=== PATIENT | female | born 1990 | race Caucasian/White ===

== ENCOUNTER 2020-10-02 22:42 | Emergency (ER) | payer BC, SELFPAY ==
--- NOTE | ~2020-10-02 | CT_ITS ---
EXAMINATION: CT brain wo con DATE: 10/02/2020 23:35 INDICATION: Fall. Head injury. TECHNIQUE: Computed tomography (CT) of the head was performed without intravenous contrast. The mA wa s adjusted according to patient size. Iterative reconstruction technique was employed. Exam dose: 60 5.33 mGy-cm total exam DLP. COMPARISON: 05/09/2013 CT brain FINDINGS: No intracranial mass lesion or hemorrhage or cerebrovascular accident is detected. No midli ne shift or mass effect effect. Normal ventricular size. Normal bassett-white matter differentiation. No subdural or epidural hematoma. Included paranasal sinuses and mastoid air cells are unremarkable. No fracture or bone destruction of the cranial vault. IMPRESSION: No significant abnormality Reviewed, dictated and finalized at [facility]. Reviewed, dictated and finalized at location [facility]. INIST BENCH IMPRESSION: No significant abnormality
--- NOTE | ~2020-10-02 | XR_ITS ---
XR chest 1V portable DATE: 10/02/2020 23:24 INDICATION: Patient fell and struck head. TECHNIQUE: Portable AP chest on 10/02/2020 at 2320 hours COMPARISON: 01/06/2016 2 view chest FINDINGS: Normal heart size. No hilar or mediastinal enlargement. No pulmonary infiltrate or consolid ation, pleural effusion or pulmonary vascular congestion or pneumothorax. IMPRESSION: No active cardiopulmonary disease Reviewed, dictated and finalized at location [facility]. MIXER
--- NOTE | ~2020-10-02 | CT_ITS ---
EXAMINATION: CT facial & cervical spine wo DATE: 10/02/2020 23:36 INDICATION: Fall. Facial and neck injury TECHNIQUE: Computed tomography (CT) of the facial bones and maxillofacial region and cervical spine w as performed without intravenous contrast. Automated exposure control and iterative reconstruction te chnique were employed. Exam dose: 282.13 mGy-cm total exam DLP. COMPARISON: 05/09/2013 CT facial bone FINDINGS: The frontozygomatic sutures are intact. No nasal bone fracture. Anterior maxillary spine is intact. The orbital rims and floors and the remainder of the orbital cha are preserved. No orbital mass or hematoma. The zygomatic arches are intact. No facial fracture is detected. Other than minimal mucoperiosteal thickening of the lower right maxillary sinus. The paranasal sinuse s and mastoid air cells are normally developed and aerated. The cervical vertebrae are normally aligned. There is straightening of the cervical spine which may b e secondary to muscle spasm. No fracture or dislocation or locked facet or prevertebral soft tissue swelling. Cervical interspaces are preserved. IMPRESSION: No facial or cervical fracture Straightening of the cervical spine, which may be secondary to muscle spasm Reviewed, dictated and finalized at [facility]. Reviewed, dictated and finalized at location [facility]. ABLE IRRIGATION OPERATOR
[2020-10-02 22:45] VITALS: BP 141/100; PULSE 126; RESP 16; TEMP 37; O2SAT 100
--- NOTE | 2020-10-02 23:22 | ED.GENADULT ---
HPI - General Adult General Chief complaint: Fall Stated complaint: ETOH, fall with head injury Time Seen by Provider: 10/02/20 22:49 Source: patient and family Mode of arrival: ambulatory Limitations: no limitations History of Present Illness HPI narrative: Patient is a 29-year-old female who presents with mother for evaluation of head injury that occurred today patient with history of alcohol abuse presents after reportedly falling and striking the head patient presents with bruising around the right orbit and temporal region patient denies any pain on arrival is unsure as to whether or not she sustained loss of consciousness patient otherwise is in no distress upon arrival is alert and oriented x3 with a GCS of 15 upon arrival patient denies suicidal or homicidal ideation patient is followed by primary care. Patient's only home medication of Xanax Related Data Allergies Allergy/AdvReac Type Severity Reaction Status Date / Time Penicillins Allergy Unknown Verified 03/24/10 10:55 Review of Systems Review of Systems: All systems reviewed & are unremarkable except as noted in HPI and below PMFSH Past Medical History Medical History (Updated 10/03/20 @ 01:25 by Ildefonso White PA-C) Anxiety Depression Family History Family History (Updated 05/03/14 @ 07:13 by DOCTOR UNKNOWN) Mother Hypertension Social History Social History (Updated 10/02/20 @ 23:24 by Ildefonso White PA-C) Smoking status: Never smoker Alcohol intake: current Exam Narrative: Exam Narrative: GENERAL: Well-appearing, well-nourished, and in no acute distress. HEAD: Normocephalic, bruising around the right orbit and temporal region EYES: PERRLA and EOMI. ENT: Nares clear, no rhinorrhea or epistaxis. Mucous membranes moist. NECK: Supple. No adenopathy or masses. CHEST: Clear to auscultation. No respiratory distress. No wheezes rales or rhonchi HEART: Regular rate and rhythm. No murmur heard. Normal peripheral pulses. ABDOMEN: Soft, nontender, nondistended EXTREMITIES: Normal range of motion. No edema. No cervical thoracic or lumbar tenderness SKIN: Warm, dry, no rash. NEURO: No focal deficits. Alert and oriented x3. Cranial nerves II through XII grossly intact. GCS of 15 PSYCH: Normal mood and affect. Course Course Emergency Course: Patient evaluated in the emergency department resting comfortably hemodynamically stable afebrile nontoxic-appearing will be discharged home at this time with outpatient follow-up with primary care patient provided with reasons to return will be discharged with family who patient and family feel comfortable with this plan Vital Signs Vital signs: Vital Signs Temperature 98.6 F 10/02/20 22:45 Pulse Rate 126 H 10/02/20 22:45 Respiratory Rate 16 10/02/20 22:45 Blood Pressure 141/100 H 10/02/20 22:45 Pulse Oximetry 100 10/02/20 22:45 Temperature 98.6 F 10/02/20 22:45 Pulse Rate 126 H 10/02/20 22:45 Respiratory Rate 16 10/02/20 22:45 Blood Pressure 141/100 H 10/02/20 22:45 Pulse Oximetry 100 10/02/20 22:45 Medical Decision Making MDM Narrative Medical decision making narrative: No high risk changes in the blood work or imaging patient was hydrated given antibiotics for her urinary tract infection will be discharged with outpatient follow-up hemodynamically stable vital signs and ABCs intact and stable Vital Signs Vital Signs: Vital Signs Temperature 98.6 F 10/02/20 22:45 Pulse Rate 126 H 10/02/20 22:45 Respiratory Rate 16 10/02/20 22:45 Blood Pressure 141/100 H 10/02/20 22:45 Pulse Oximetry 100 10/02/20 22:45 Temperature 98.6 F 10/02/20 22:45 Pulse Rate 126 H 10/02/20 22:45 Respiratory Rate 16 10/02/20 22:45 Blood Pressure 141/100 H 10/02/20 22:45 Pulse Oximetry 100 10/02/20 22:45 Lab Data Result diagrams: 10/02/20 23:20 10/02/20 23:20 Labs: Lab Results 10/02/20 10/02/20 10/02/20 Range/Unit
--- NOTE | 2020-10-02 23:24 | PC.NURSE ---
Patient to radiology
[2020-10-02 23:27] LABS: Basophils Absolute Auto 0.1 K/mm3 (0.0-0.1); Eosinophils Absolute Auto 0.1 K/mm3 (0-0.3); Eosinophils Percent Auto 0.8 % (0-4.4); Hematocrit 46.1 % (37.0-47.0); Hemoglobin 15.6 g/dL (12.0-15.0); Immature Granulocyte Absolute 0.01 K/mm3 (0.00-0.031); Immature Granulocyte Percent A 0.2 % (0-0.5); Lymphocytes Absolute Auto 2.55 K/mm3 (0.9-3.2); Lymphocytes Percent Auto 38.5 % (18.3-44.2); Mean Corpuscular HGB Conc 33.8 g/dl (32-36); Mean Corpuscular Hemoglobin 30.8 pg (26-34); Mean Corpuscular Volume 90.9 fl (80-100); Mean Platelet Volume 9.5 fl (7.4-10.4); Monocytes Absolute Auto 0.5 K/mm3 (0.1-0.6); Monocytes Percent Auto 6.8 % (2.6-8.5); Neutrophils Absolute Auto 3.4 K/mm3 (1.3-6.7); Neutrophils Percent Auto 51.7 % (45.5-73.1); Platelet Count Result 279 k/mm3 (150-375); Red Blood Count 5.07 M/mm3 (4.2-5.4); Red Cell Distribution Width 12.9 % (11.5-14.5); White Blood Count 6.6 K/mm3 (4.5-10.0)
[2020-10-02 23:38] LABS: Magnesium 2.2 mg/dL (1.6-2.3)
[2020-10-02 23:39] LABS: Alanine Aminotransferase 56 U/L (4-35); Albumin Level 4.7 g/dL (3.5-5.1); Alkaline Phosphatase 79 U/L (38-126); Anion Gap 15 mmol/L (8-16); Aspartate Amino Transferase 115 U/L (14-36); Bilirubin,Total 0.6 mg/dL (0.2-1.3); Blood Urea Nitrogen 5 mg/dL (7-17); Calcium 8.8 mg/dL (8.4-10.2); Carbon Dioxide 26 mmol/L (22-30); Chloride 104 mmol/L (98-107); Estimated CRCL calculation 85 ml/min; Estimated Glomerular Filt Rate > 60; Glucose 82 mg/dL (65-105); Lipase 86 U/L (23-300); Potassium 3.9 mmol/L (3.4-5.0); Sodium 145 mmol/L (137-145)
[2020-10-02] MEDS: FAMOTIDINE 20 MG/2 ML VIAL IV PUSH (23:54)
[2020-10-02] MEDS: THIAMINE HCL INJ 100 MG, FOLIC ACID INJ 1 MG, MULTIVITAMINS-12 INJ VIAL 1 5 ML, MULTIVI... 999 MG IV CONT (23:54)
[2020-10-02] MEDS: ONDANSETRON INJ 4 MG/2 ML VIAL IV PUSH (23:54)
[2020-10-03 00:34] LABS: Add Urine Microscopic? YES; Appearance Urine Cloudy (Clear); Bilirubin Urine Negative (Negative); Blood Urine 3+ (Negative); Color Urine Red (Yellow); Glucose Urine UA Negative (Negative); Ketones Urine 1+ mg/dL (Negative); Leukocyte Esterase Ur Trace LEU/UL (Negative); Mucus Urine Rare /lpf; Nitrate Urine Negative (Negative); Protein Urine 2+ mg/dL (Negative); RBC Urine >75 /hpf (0-2); Specific Grav Ur 1.016 (1.001-1.035); Squamous Epithelial Cell Urine Moderate /hpf (Few); Urobilinogen Urine Negative mg/dL (<2.0); WBC Urine 51-75 /hpf
[2020-10-03 01:40] VITALS: BP 143/94; PULSE 100; RESP 16; TEMP 36.6; O2SAT 96
== END 2020-10-03 01:42 | disposition home or self-care (01) ==
PROVIDERS: Emergency Medicine Emergency Medical Services; Emergency Provider Emergency Medicine; Family Provider Internal Medicine; PCP Family Medicine
DX: S05.11XA Contusion of eyeball and orbital tissues, right eye, initial encounter (principal); N39.0 Urinary tract infection, site not specified; W19.XXXA Unspecified fall, initial encounter
CPT/HCPCS: 36415; 70450; 70486; 71045; 72125; 80053; 81001; 81025; 83690; 83735; 85025; 87077; 87086; 87088; 87186; 96365; 96375; 99284; J0696; J2405; J3411; J3475; J7120

== ENCOUNTER 2024-02-03 15:08 | Emergency (ER) | payer MEDICAID, SELFPAY ==
[2024-02-03 15:13] VITALS: BP 156/100; PULSE 100; RESP 16; TEMP 37; O2SAT 100
--- NOTE | 2024-02-03 15:14 | ED.RECABL ---
HPI - Recheck/Abnormal Lab/Rx General Chief Complaint: Recheck/Abnormal Lab/Rx Stated Complaint: Medication refill Time Seen by Provider: 02/03/24 15:12 Source: patient Mode of arrival: ambulatory Limitations: no limitations History of Present Illness HPI narrative: Patient presents requesting medication refill. She had been taking alprazolam/Xanax for anxiety for the past 7 years. Recently moved back to this area from [place] but her prescription for this medication has not been able to be filled. She is also on fluoxetine. Has not been able to get in to see a PCP or psychiatrist yet. She knows she has an appointment coming up on 02/16. She has been out of her anxiolytic for 2.5 weeks and states that her anxiety is severe enough today that she had to quit her job which is in turn causing even more stress and anxiety. Denies any SI/HI. Related Data Allergies Allergy/AdvReac Type Severity Reaction Status Date / Time Penicillins Allergy Unknown Verified 03/24/10 10:55 [facility] Past Medical History Medical History Anxiety Depression Family History Family History (Updated 05/03/14 @ 07:13 by DOCTOR UNKNOWN) Mother Hypertension Social History Social History (Updated 10/02/20 @ 23:24 by Ildefonso White, PA-C) Smoking status: Never smoker Alcohol intake: current Substance use type: does not use Exam Narrative: GENERAL: Well-appearing, well-nourished, and in no acute distress. HEAD: Normocephalic, atraumatic. EYES: Non injected, non icteric ENT: Nares clear, no rhinorrhea or epistaxis. NECK: Supple. CHEST: Speaking in full sentences. No respiratory distress. HEART: Regular rate and rhythm. . ABDOMEN: Soft, nondistended. EXTREMITIES: Normal range of motion. No edema. SKIN: Warm, dry, no rash. NEURO: No focal deficits. Alert and oriented x3. PSYCH: Normal mood and affect. Slightly anxious but not tremulous. No abnormal movements. GOod eye contact. Appropriate speech. Denies SI/HI. Course Vital Signs Vital signs: Vital Signs Temperature 98.6 F 02/03/24 15:13 Pulse Rate 100 02/03/24 15:13 Respiratory Rate 16 02/03/24 15:13 Blood Pressure 156/100 H 02/03/24 15:13 Pulse Oximetry 100 02/03/24 15:13 Oxygen Delivery Room Air 02/03/24 15:13 Temperature 98.6 F 02/03/24 15:13 Pulse Rate 84 02/03/24 16:29 Respiratory Rate 16 02/03/24 16:29 Blood Pressure 141/84 H 02/03/24 16:29 Pulse Oximetry 99 02/03/24 16:29 Oxygen Delivery Room Air 02/03/24 15:13 MDM - Recheck/Abnormal Lab/Rx MDM Narrative Medical decision making narrative: Patient presents requesting refill of her Xanax, a medication she has been on for 7 years (in conjunction with fluoxetine) but out of for the past 2.5 weeks since moving back to this area from [place]. In the ED she is afebrile with VS notable for HTN. Patient screened with CHERRY-7: 21 points (+3/nearly every day each question) airport representative of severe anxiety disorder with global impairment rated extremely difficult, especially ability to work as she felt she needed to quit her job today due to how extreme her symptoms felt. Denies SI/HI. Patient has pill bottle from [place] showing last Rx 12/07/23, prescribed as 0.5 - 1 pill daily. Patient states she takes 1 per day typically. Has an upcoming appointment to establish with a provider in this area. Will write for short course of anxiolytic. Attempted to check [place] database and it does not appear there have been other recent fills in the state. Discharged in stable condition after giving her a home dose and giving ED return precautions. Medical Records Attestation: I reviewed the patient's medical records. Medical records narrative: Patient not seen at [facility] since 2020 Discharge Plan Discharge Clinical Impression: Encounter for medication refill, CHERRY (generalized anxiety disorder) Patient Disposition: Home,
[2024-02-03] MEDS: ALPRAZolam (*CRX) 0.5 MG TABLET 1 MG PO (16:18)
[2024-02-03 16:29] VITALS: BP 141/84; PULSE 84; RESP 16; O2SAT 99
== END 2024-02-03 16:30 | disposition home or self-care (01) ==
PROVIDERS: Emergency Provider Student in an Organized Health Care Education/Training Program
DX: F41.1 Generalized anxiety disorder (principal); F32.A Depression, unspecified; Z76.0 Encounter for issue of repeat prescription
CPT/HCPCS: 99281; A9270

== ENCOUNTER 2024-02-17 10:58 | Outpatient (CLI) | payer MEDICAID, SELFPAY ==
[2024-02-29 15:40] LABS: Kit Draw Collected
== END 2024-02-17 10:59 | disposition home or self-care (01) ==
DX: Z76.89 Persons encountering health services in other specified circumstances (principal)
CPT/HCPCS: 36415

== ENCOUNTER 2024-03-16 15:51 | Outpatient (CLI) | payer MEDICAID, SELFPAY ==
[2024-03-16 20:12] LABS: Basophils Percent Auto 0.5 % (0.2-1.2); Eosinophils Absolute Auto 0.1 K/mm3 (0-0.3); Eosinophils Percent Auto 1.1 % (0-4.4); Hematocrit 37.6 % (37.0-47.0); Hemoglobin 12.3 g/dL (12.0-15.0); Immature Granulocyte Absolute 0.03 K/mm3 (0.00-0.031); Immature Granulocyte Percent A 0.3 % (0-0.5); Lymphocytes Absolute Auto 1.61 K/mm3 (0.9-3.2); Lymphocytes Percent Auto 18.3 % (18.3-44.2); Mean Corpuscular HGB Conc 32.7 g/dl (32-36); Mean Corpuscular Hemoglobin 29.9 pg (26-34); Mean Corpuscular Volume 91.5 fl (80-100); Monocytes Absolute Auto 0.8 K/mm3 (0.1-0.6); Monocytes Percent Auto 8.5 % (2.6-8.5); Neutrophils Absolute Auto 6.3 K/mm3 (1.3-6.7); Neutrophils Percent Auto 71.3 % (45.5-73.1); Platelet Count Result 193 k/mm3 (150-375); Red Blood Count 4.11 M/mm3 (4.2-5.4); Red Cell Distribution Width 12.6 % (11.5-14.5); White Blood Count 8.8 K/mm3 (4.5-10.0)
[2024-03-16 20:24] LABS: HIV 1/2 Ab P24 Ag Result Negative (Negative)
[2024-03-16 20:32] LABS: Hepatitis B Surface Antigen Negative (Negative); Rubella IgG Antibody 9.1 IU/ML
[2024-03-17 11:18] LABS: Rapid Plasma Reagin Non-Reactive (NonReactive)
[2024-03-17 12:49] LABS: CMV IgG Antibody <0.60 U/mL
[2024-03-26 19:33] LABS: SMA 2.0 RISK VARIANT NOT DETECTED
[2024-03-29 09:08] LABS: CF Result NEGATIVE (NEGATIVE)
== END 2024-03-16 15:52 | disposition home or self-care (01) ==
LOC: ANHGOSHLAB 15:52
PROVIDERS: Visit Provider Student in an Organized Health Care Education/Training Program
DX: N94.89 Other specified conditions associated with female genital organs and menstrual cycle (principal)
CPT/HCPCS: 36415; 81220; 81329; 84702; 85025; 86592; 86644; 86703; 86747; 86762; 86787; 86850; 86900; 86901; 87086; 87340; G0432

== ENCOUNTER 2024-06-23 14:16 | Outpatient (CLI) | payer OTHER, SELFPAY ==
[2024-06-23 18:02] LABS: Basophils Absolute Auto 0.1 K/mm3 (0.0-0.1); Basophils Percent Auto 0.6 % (0.2-1.2); Eosinophils Absolute Auto 0.1 K/mm3 (0-0.3); Hematocrit 36.1 % (37.0-47.0); Hemoglobin 11.5 g/dL (12.0-15.0); Immature Granulocyte Absolute 0.11 K/mm3 (0.00-0.031); Immature Granulocyte Percent A 1.1 % (0-0.5); Lymphocytes Absolute Auto 1.62 K/mm3 (0.9-3.2); Lymphocytes Percent Auto 16.8 % (18.3-44.2); Mean Corpuscular HGB Conc 31.9 g/dl (32-36); Mean Corpuscular Hemoglobin 29.5 pg (26-34); Mean Corpuscular Volume 92.6 fl (80-100); Mean Platelet Volume 12.3 fl (7.4-10.4); Monocytes Absolute Auto 0.6 K/mm3 (0.1-0.6); Monocytes Percent Auto 6.6 % (2.6-8.5); Neutrophils Absolute Auto 7.1 K/mm3 (1.3-6.7); Neutrophils Percent Auto 73.9 % (45.5-73.1); Platelet Count Result 134 k/mm3 (150-375); Red Cell Distribution Width 13.1 % (11.5-14.5); White Blood Count 9.7 K/mm3 (4.5-10.0)
[2024-06-23 18:12] LABS: Glucose 1 Hour PP 50gm Dose 140 mg/dL
[2024-06-23 19:04] LABS: HIV 1/2 Ab P24 Ag Result Negative (Negative)
[2024-06-24 13:45] LABS: Rapid Plasma Reagin Non-Reactive (NonReactive)
== END 2024-06-23 14:17 | disposition home or self-care (01) ==
LOC: ANHGOSHLAB 14:18
PROVIDERS: Visit Provider Obstetrics & Gynecology
DX: Z34.90 Encounter for supervision of normal pregnancy, unspecified, unspecified trimester (principal)
CPT/HCPCS: 36415; 82947; 85025; 86592; 86703; G0432

== ENCOUNTER 2024-06-27 12:38 | Outpatient (CLI) | payer OTHER, SELFPAY ==
[2024-06-27 12:50] LABS: Glucose Point of Care 91 mg/dl (65-105)
[2024-06-27 19:03] LABS: Glucose 2 Hour Gest 114 mg/dL (>/= 155)
[2024-06-27 19:04] LABS: Glucose 3 Hour Gest 86 mg/dL (>/=140)
[2024-06-27 19:04] LABS: Glucose 1 Hour Gest 146 mg/dL (>/=180)
== END 2024-06-27 12:39 | disposition home or self-care (01) ==
LOC: ANHGOSHLAB 12:40
PROVIDERS: Visit Provider Obstetrics & Gynecology
DX: O99.810 Abnormal glucose complicating pregnancy (principal); Z3A.00 Weeks of gestation of pregnancy not specified
CPT/HCPCS: 36415; 82948; 82951; 82952

== ENCOUNTER 2024-08-18 06:58 | Outpatient (RCR) | payer OTHER, SELFPAY ==
[2024-08-11 16:52] VITALS: BP 131/88; PULSE 99
--- NOTE | 2024-08-11 19:00 | PC.NURSE ---
1849- RN notified MD Brain of reactive NST, BPP 04/13, and US results. gave orders to d/c and tell patient to keep her normal scheduled appointment. RN discussed plan of care with patient, patient agrees with plan of care.
[2024-08-14 14:09] VITALS: BP 142/84; PULSE 93
--- NOTE | ~2024-08-18 | US_ITS ---
LIMITED OBSTETRIC ULTRASOUND/BIOPHYSICAL PROFILE Ordering provider: Jatin De La Paz MD History: . close to due date/ growth scan BPP . Comparison: None. FINDINGS: MATERNAL CERVIX: Not visualized. PRESENTATION: Vertex. PLACENTAL LOCATION: Anterior No previa. HEART RATE: 137 bpm (normal is between 110 to 160 bpm). AMNIOTIC FLUID INDEX: Largest vertical pocket is 2.1 cm. OTHER: Maternal ovaries not visualized. BPD: 9.6 cm (39 weeks 1 days) HC: 34.1 cm (39 weeks 1 days) AC: 35.6 cm (39 weeks 3 days) FL: 7.5 cm (38 weeks 3 days) Estimated weight is 3760 g. EFW/GP: 66.5% CI: 82.4. FL: 78.13. HC/AC: 0.96. FL/AC: 21.1 Ultrasound Gestational age is 39 weeks and 0 days. OSMAR is August 18, 2024 SCORE: breathing movements: 2 movements: 2 tone: 2 Amniotic fluid volume: 2 Total: 8 IMPRESSION: Normal biophysical profile. Reviewed, dictated and finalized at location A. ULTURIST IMPRESSION: Normal biophysical profile.
--- NOTE | ~2024-08-18 | US_ITS ---
EXAMINATION: US OB BPP wo non-stress DATE: 08/18/2024 08:31 INDICATION: Postdates TECHNIQUE: Real-time pelvic ultrasound was performed. The interpreting radiologist was not present fo r the study. COMPARISON: None. FINDINGS: There is a single living fetus in vertex presentation. The placenta is anterior and not low-lying. F etal heart rate is 137 beats per minute (bpm). Amniotic fluid volume appears subjectively mildly decr eased but with deepest vertical pocket measurement of 4.0 cm. Biophysical profile performed by the technologist: breathing (30 sec sustained breathing in 30 minutes): 2 out of 2 movement (3 gross body movements in 30 minutes): 0 out of 2 tone (one episode of [id number] limb movement): 2 out of 2 Amniotic fluid pocket (2 cm): 2 out of 2 Total score: 6 out of 8 IMPRESSION: 1. Single living fetus in vertex presentation with heart rate of 137 bpm. 2. Biophysical profile 6 out of 8. No points given for movement was only 2 gross body movement s observed in the 30 minutes of observation. 3. Subjectively mildly decreased amniotic fluid volume normal deepest vertical pocket measureme nt of 4.0 cm. Reviewed, dictated and finalized at location A. ESS WORKER IMPRESSION: 1. Single living fetus in vertex presentation with heart rate of 137 bpm. 2. Biophysical profile 6 out of 8. No points given for movement was only 2 gross body movements observed in the 30 minutes of observation. 3. Subjectively mildly decreased amniotic fluid volume normal deepest barry tical pocket measurement of 4.0 cm.
[2024-08-18 07:58] VITALS: BP 136/85; PULSE 89
== END 2024-09-16 16:10 | disposition home or self-care (01) ==
LOC: ANHOBOP 06:58
PROVIDERS: Visit Provider Obstetrics & Gynecology
DX: Z36.89 Encounter for other specified antenatal screening (principal)
CPT/HCPCS: 59025; 76816; 76819

== ENCOUNTER 2024-08-18 08:50 | Inpatient (IN) | payer OTHER, SELFPAY ==
[2024-08-18] VITALS (181 sets, daily range): BP systolic 79–154; BP diastolic 22–98; PULSE 73–121; TEMP 36.1–36.9; O2SAT 95–100; BMI 42.5
--- NOTE | 2024-08-18 08:50 | LDADM ---
This patient, Shaylee Tyson, was admitted to Labor/Delivery/Recovery 107 on 08/18/24 at 08:50. Plans for labor, pain management and were discussed with patient. Patient/family oriented to hospital policies and general routines including ID bracelet, bed and alarms, visiting hours, pain management, procedures, bathroom and other care routines, personal items, smoking policy, room service/diet and guest tray routines, security routines, and visiting hours. Patient/Family are encouraged to report perceived risks to care and to ask questions if they do not understand what they are told or what they should do. See OBIX for further documentation.
[2024-08-18] MEDS: miSOPROStol 25 MCG TABLET BUCCAL (09:31)
[2024-08-18 09:32] LABS: Basophils Percent Auto 0.5 % (0.2-1.2); Eosinophils Absolute Auto 0.1 K/mm3 (0-0.3); Eosinophils Percent Auto 1.3 % (0-4.4); Hematocrit 38.1 % (37.0-47.0); Hemoglobin 12.6 g/dL (12.0-15.0); Immature Granulocyte Absolute 0.03 K/mm3 (0.00-0.031); Immature Granulocyte Percent A 0.4 % (0-0.5); Lymphocytes Absolute Auto 1.64 K/mm3 (0.9-3.2); Lymphocytes Percent Auto 21.1 % (18.3-44.2); Mean Corpuscular HGB Conc 33.1 g/dl (32-36); Mean Corpuscular Hemoglobin 30.1 pg (26-34); Mean Corpuscular Volume 90.9 fl (80-100); Monocytes Absolute Auto 0.7 K/mm3 (0.1-0.6); Monocytes Percent Auto 9.2 % (2.6-8.5); Neutrophils Absolute Auto 5.3 K/mm3 (1.3-6.7); Neutrophils Percent Auto 67.5 % (45.5-73.1); Platelet Count Result 127 k/mm3 (150-375); Red Blood Count 4.19 M/mm3 (4.2-5.4); Red Cell Distribution Width 13.9 % (11.5-14.5); White Blood Count 7.8 K/mm3 (4.5-10.0)
[2024-08-18 10:22] LABS: Rapid Plasma Reagin Non-Reactive (NonReactive)
[2024-08-18 10:25] LABS: HIV 1/2 Ab P24 Ag Result Negative (Negative)
--- NOTE | 2024-08-18 14:23 | P.HP_ITS ---
H&P: HPI History of Present Illness Date/Time: 08/18/24 14:23 Chief Complaint: NST/BPP 10 Narrative: Shaylee is a 33yo @ 40.3wks who presented for routine testing due to post dates; she had endorsed some decreased movement earlier this week and NST/BPP was reactive. NST was not reactive this AM, and BPP was 6/8, off for breathing. She reports some decreased movement. No ctx, vb, lof. She has otherwise had regular care. Her is complicated by: - Anxiety- fluoextine 40mg and xanax 1mg, pt has psychiatrist - ADHD- dx by psych, recommending stimulants - Asthma- albuterol PRN - H/o low lying placenta -- RESOLVED Review of Systems Constitutional: Constitutional: Denies chills, Denies fever(s) and Denies headache(s) Eyes: Eyes: Denies change in vision ENT: Denies headache(s) Cardiovascular: Cardiovascular: Denies chest pain and Denies dyspnea Respiratory: Respiratory: Denies dyspnea Genitourinary: Genitourinary: Denies abnormal vaginal bleeding and Denies vaginal discharge Neurologic: Denies headache(s) Psychiatric: Psychiatric: Denies anxiety and Denies depression [facility] Past Medical History Medical History Abnormal glucose tolerance in Anxiety Depression Suppression of menses Surgical History Surgical History Hx of tonsillectomy Family History Family History Mother Hypertension Grandparent Depression Social History Social History (Updated 08/14/24 @ 10:01 by SO Duncan) Smoking status: Never smoker Alcohol intake: former Substance use: never Substance use type: does not use Do You Feel Safe in your Home?: Yes Lack of Transportation: No Lack of Food: Sometimes True Current Housing: I Have Housing Concerned About Future Housing: YES Difficulty Paying Gas/Electric Bills: YES Difficulty Paying for Meds: No Currently Unemployed: YES Education: Trade/Vocational Certificate Difficulty w/ Childcare or Family Care: No Living arrangements: with family Occupation/Education: unemployed Gender identity (if verbalized by the patient): Female Spiritual care concerns: No Meds Home Medications and Allergies Home Medications ?Medication ?Instructions ?Recorded ?Confirmed ?Type alprazolam 1 mg tablet (Xanax) See Rx Instructions .Route 02/03/24 08/08/24 Rx .COMPLEX PRN anxiety #15 tabs fluoxetine 40 mg capsule 40 mg PO DAILY 02/17/24 08/08/24 History albuterol sulfate 90 mcg/actuation 2 puff inhalation Q4-6H PRN 03/21/24 08/08/24 Rx aerosol inhaler shortness of breath or wheezing #8.5 grams dexmethylphenidate 10 mg 10 mg PO DAILY 04/18/24 08/08/24 History capsule,extended release [id number] vits no.126-ferrous fum 1 tablet PO DAILY #90 tabs 05/24/24 08/08/24 Rx 28 mg iron-folic acid 800 mcg tablet (Classic ) mirtazapine 15 mg tablet 15 mg PO QHS 07/03/24 08/08/24 History Allergies Allergy/AdvReac Type Severity Reaction Status Date / Time Penicillins Allergy Unknown Hives Verified 08/14/24 10:00 Vital Signs Vital Signs - 24 hr 08/18/24 09:04 08/18/24 09:46 08/18/24 10:01 Pulse Rate 90 92 90 Blood Pressure 154/95 H 139/93 H 139/90 08/18/24 10:16 08/18/24 10:31 08/18/24 11:01 Pulse Rate 80 86 81 Blood Pressure 148/92 H 133/98 H 129/78 08/18/24 11:16 08/18/24 11:31 08/18/24 11:46 Pulse Rate 82 79 86 Blood Pressure 143/87 H 131/89 134/87 08/18/24 12:01 08/18/24 12:16 08/18/24 12:31 Pulse Rate 84 91 83 Blood Pressure 134/94 H 132/69 129/81 08/18/24 12:46 08/18/24 13:01 08/18/24 13:16 Pulse Rate 93 91 92 Blood Pressure 126/80 130/80 141/80 H 08/18/24 13:31 08/18/24 13:46 08/18/24 14:01 Pulse Rate 99 88 82 Blood Pressure 145/85 H 128/76 127/72 Exam Const: General: cooperative, no acute distress and obese Nutritional Appearance: obese Orientation/consciousness: patient oriented x3 Resp: Effort & Inspection: normal respiratory effort Cardio: Rate: regular rate GI: GI Palp: No abdominal tenderness : Other: FHT's: 140's/ mod cherelle/ + accels/ no decels - cat 1 TOCO: ctxs q2min Cervix: 1/thick/ -3, mid, med Membranes: intact Presentation: cephalic Skin: General skin exam: normal color Neuro: General: patient oriented x3 Extrem: General: normal to inspection Psych: Appearance: grossly normal Affect: normal affect Attitude: cooperative H&P: Results Labs Labs: Short CBC 08/18/24 Range/Units 09:03 WBC 7.8 (4.5-10.0) K/mm3 Hgb 12.6 (12.0-15.0) g/dL Hct 38.1 (37.0-47.0) % Plt Count 127 L (150-375) k/mm3 Assessment and Plan Assessment and plan (1) NST (non-stress test) nonreactive: Code(s): O28.8 - Other abnormal findings on screening of mother Status: Acute (2) : Qualifiers: Weeks of gestation: 40 weeks Qualified Code(s): Z3A.40 - 40 weeks gestation of Code(s): Z34.90 - Encounter for supervision of normal , unspecified, unspecified trimester Status: Acute Plan - NST/BPP 02/13 which is equivocal testing, but with being post-dates, recommended induction of labor - Pt now s/p cytotec 25mcg, cervix more favorable, but still 1/thick/-3, mid, med - Cook balloon with 60/60cc was placed at 1420; will plan to remove in 6 hours unless spontaneously expulsed - Will start low dose pitocin on top of Cook balloon - Continuous monitoring; currently reassuring - GBS negative - Anesthesia consult PRN pain - Rn Patient Services to be present at delivery
[2024-08-18] MEDS: OXYTOCIN 30 UNITS/NS 500 ML 30 UNITS/500 ML BAG IV CONT (14:58)
[2024-08-18] MEDS: LACTATED RINGERS 1,000 ML 125 ML IV CONT ×3 (14:58→19:02)
[2024-08-18] MEDS: PHENYLEPHRINE 1,000 MCG/10 ML SYRINGE 100 MCG IV PUSH ×2 (17:24→18:24)
--- NOTE | 2024-08-18 17:31 | P.PNAN_ITS ---
Anes - Eval Pre Procedure Procedure: Labor Pain Management Date/Time: 08/18/24 17:31 Surgeon: Brain Preop Diagnosis: pain during labor Pre Op Diagnosis: IOL Patient Data Age: 33 Gender: F Height: 1.65 m Weight: 116 kg Last Vital Signs Temp 97.6 F 08/18/24 15:04 Pulse 88 08/18/24 17:29 BP 117/61 08/18/24 17:29 Pulse Ox 99 08/18/24 17:29 Allergies Allergy/AdvReac Type Severity Reaction Status Date / Time Penicillins Allergy Unknown Hives Verified 08/14/24 10:00 Home Medications ?Medication ?Instructions ?Recorded ?Confirmed ?Type alprazolam 1 mg tablet (Xanax) See Rx Instructions .Route 02/03/24 08/08/24 Rx .COMPLEX PRN anxiety #15 tabs fluoxetine 40 mg capsule 40 mg PO DAILY 02/17/24 08/08/24 History albuterol sulfate 90 mcg/actuation 2 puff inhalation Q4-6H PRN 03/21/24 08/08/24 Rx aerosol inhaler shortness of breath or wheezing #8.5 grams dexmethylphenidate 10 mg 10 mg PO DAILY 04/18/24 08/08/24 History capsule,extended release [id number] vits no.126-ferrous fum 1 tablet PO DAILY #90 tabs 05/24/24 08/08/24 Rx 28 mg iron-folic acid 800 mcg tablet (Classic ) mirtazapine 15 mg tablet 15 mg PO QHS 07/03/24 08/08/24 History Laboratory Tests 08/18/24 09:03 WBC 7.8 K/mm3 (4.5-10.0) RBC 4.19 L M/mm3 (4.2-5.4) Hgb 12.6 g/dL (12.0-15.0) Hct 38.1 % (37.0-47.0) MCV 90.9 fl (80-100) MCH 30.1 pg (26-34) MCHC 33.1 g/dl (32-36) RDW 13.9 % (11.5-14.5) Plt Count 127 L k/mm3 (150-375) MPV 13.0 H fl (7.4-10.4) Immature Gran % (Auto) 0.4 % (0-0.5) Neut % (Auto) 67.5 % (45.5-73.1) Lymph % (Auto) 21.1 % (18.3-44.2) [place] % (Auto) 9.2 H % (2.6-8.5) Eos % (Auto) 1.3 % (0-4.4) Baso % (Auto) 0.5 % (0.2-1.2) Lymph # (Auto) 1.64 K/mm3 (0.9-3.2) [place] # (Auto) 0.7 H K/mm3 (0.1-0.6) Eos # (Auto) 0.1 K/mm3 (0-0.3) Baso # (Auto) 0.0 K/mm3 (0.0-0.1) Abs Immat Gran (auto) 0.03 K/mm3 (0.00-0.031) Absolute Neuts (auto) 5.3 K/mm3 (1.3-6.7) Absolute Nucleated RBC 0.000 K/mm3 (0.0-0.012) Nucleated RBC % 0.0 % (0.0-0.2) RPR Non-reactive (NonReactive) HIV 1&2 Ab/P24 Ag 4thGn Negative (Negative) Blood Type A Positive Antibody Screen Negative Patient hx anesthesia problems: none Family hx anesthesia problems: none Results Review: All pre-operative results and documents have been reviewed as part of the pre- operative evaluation. [facility] Past Medical History Medical History (Updated 08/18/24 @ 17:34 by Sadie Clark CRNA) Asthma Abnormal glucose tolerance in Suppression of menses Depression Anxiety Surgical History Surgical History Hx of tonsillectomy Family History Family History Mother Hypertension Grandparent Depression Social History Social History Smoking status: Never smoker Alcohol intake: former Substance use: never Substance use type: does not use Do You Feel Safe in your Home?: Yes Lack of Transportation: No Lack of Food: Sometimes True Current Housing: I Have Housing Concerned About Future Housing: YES Difficulty Paying Gas/Electric Bills: YES Difficulty Paying for Meds: No Currently Unemployed: YES Education: Trade/Vocational Certificate Difficulty w/ Childcare or Family Care: No Living arrangements: with family Occupation/Education: unemployed Gender identity (if verbalized by the patient): Female Spiritual care concerns: No Exam Day of Procedure 08/18/24 17:31 Patient weight: morbidly obese (bmi 42.6) Neurological: alert and oriented
[2024-08-18] MEDS: ONDANSETRON INJ 4 MG/2 ML VIAL IV PUSH (18:26)
--- NOTE | 2024-08-18 20:21 | PM.OBPNLAB ---
Pain Control Date/time seen: 08/18/24 20:21 Pain control: epidural Pelvic Exam Dilation (cm): 5 Effacement (%): 50 station: -3 Amniotic membrane status: Ruptured (AROM, thick meconium 2020) Contractions Monitor mode: External Contraction frequency: 2 Status status: Category l Assessment and Plan Pitocin rate (mU/min): 8 Plan: continuous present management Comments: - will check patient in 3-4 hours; if unchanged, will place [facility] - Pedi to be at delivery
[2024-08-19] VITALS (242 sets, daily range): BP systolic 103–151; BP diastolic 43–98; PULSE 34–175; RESP 16–26; TEMP 36.4–38.8; O2SAT 80–100
[2024-08-19] MEDS: LACTATED RINGERS 1,000 ML 125 ML IV CONT ×2 (03:00→10:05)
[2024-08-19] MEDS: SODIUM CHLORIDE 0.9% IV 300 ML 600 ML I-UTERINE (03:42)
--- NOTE | 2024-08-19 09:27 | PM.OBPNLAB ---
Pain Control Date/time seen: 08/19/24 09:27 Pain control: epidural Pelvic Exam Dilation (cm): 7 Effacement (%): 70 station: -2 Amniotic membrane status: Ruptured (AROM, thick meconium 2020) Contractions Monitor mode: Internal Contraction frequency: 2 Status status: Category ll Comments: FSE place at 0400 after prolonged deceleration Has had periods of variables as well; amnioinfusion has been infusing as well currently reassuring with good variability Assessment and Plan Pitocin rate (mU/min): 6 Assessment: active labor Plan: begin patient augmentation Comments: - Pt became active at 0400; now approximately 7cm at 0930, contractions inadequate on pitocin w/ IUPC and FSE in place - Discussed the meaning of arrest of active phase and she has not met that, but with the intolerance, we are monitoring closely. If no significant change by noon, would recommend - will trial benadryl/tums as the cervix feels edematous
[2024-08-19] MEDS: ONDANSETRON INJ 4 MG/2 ML VIAL IV PUSH (09:52)
[2024-08-19] MEDS: diphenhydrAMINE HCl INJ 50 MG/ML VIAL (09:55)
[2024-08-19] MEDS: CALCIUM CARBONATE (TUMS) 500 MG (200 MG ELEMENTAL) (09:55)
[2024-08-19] MEDS: FLUoxetine HCL 20 MG CAPSULE 40 MG PO (09:56)
[2024-08-19] MEDS: miSOPROStol 200 MCG TABLET 800 MCG (14:25)
[2024-08-19] MEDS: OXYTOCIN 30 UNITS/NS 500 ML 30 UNITS/500 ML BAG 125 UNITS IV CONT (14:45)
--- NOTE | 2024-08-19 14:45 | P.PCNOB_ITS ---
OB - Vaginal Delivery Note Procedure Delivery date: 08/19/24 Events: Other (non-reactive NST/BPP= 610) Induction method: Per Misoprostol Protocol and Other (Cook balloon) Delivery augmentation: Rupture of Membranes and Pitocin Delivery monitor: Internal FHT and Internal Uterine Route of delivery: Laceration Description: Perineal - 2nd Degree Delivery repair: vicryl Specimen: Yes (placenta) Quantitative Blood Loss (ml): 400 Anesthesia type: Local (12cc of 1% lidocaine w/o epi) Disposition: Floor Complications: No immediate complications [place] Baby Date of : 08/19/24 Time of : 14:18 Gestational Age by Date: 40 (.4) Infant gender: Male Weight (pounds): 8 Weight (ounces): 1 presentation: vertex Placenta delivery description: Expressed Cord Vessel Description: 3 Vessels score one minute: 7 score five minutes: 9 Narrative: Mehnaz progressed to complete dilation with strong desire to push. She pushed for 1 hour with good maternal effort. She delivered the head over intact perineum. Nuchal cord was not palpated. The head initially delivered L OT, but then with restitution was noted to be LOP. The anterior shoulder was palpated and was the 's right shoulder, but with downward traction the anterior shoulder then delivered without complication. The infant was immediately placed skin to skin and had decreased and tone color and cry. The umbilical cord was then doubly clamped and cut and was handed off to the awaiting pediatric team and attending. A segment of the cord was collected for cord gases. The remaining cord blood was collected for typing. With Pitocin running and gentle downward traction on the cord, the placenta delivered without complication. Brisk bleeding was then noted and bimanual massage revealed slight atony. The nurse then placed 800 mcg of misoprostol rectally and the uterus was then found to be firm with minimal bleeding. She was examined and a small second-degree perineal laceration was identified. I began suturing using 2-0 Vicryl however she did feel some pain therefore she was anesthetized with 1% lidocaine without epinephrine. The perineal laceration was repaired in the normal fashion and was reapproximated well. Uterus remained firm with minimal bonding. Sponge, lap, instrument, and needle counts were correct at the end the procedure. Mom and baby were then left bonding in the birthing suite in stable condition. The country sales manager evaluated the infants right arm and no fractures were noted, and good movement was seen.
[2024-08-19] MEDS: ACETAMINOPHEN 325 MG TABLET 650 MG PO (15:48)
[2024-08-19] MEDS: IBUPROFEN 600 MG TABLET PO (15:49)
[2024-08-19] MEDS: WITCH HAZEL 40 PADS 1 PAD TOPICAL (15:50)
[2024-08-19] MEDS: ALPRAZolam (*CRX) 0.5 MG TABLET 1 MG PO (15:50)
[2024-08-19] MEDS: BENZOCAINE 20% AER SPR (*SP) 56 GM CAN 1 SPRAY TOPICAL (15:50)
--- NOTE | 2024-08-19 17:26 | PC.NURSE ---
1645. Patient transferred to post room #282 via wheelchair, in crib with mom at this time also. Support person present. Oriented to unit, room, information board, rooming in, admission packet and security measures. Patient verbalizes understanding.
--- NOTE | 2024-08-19 17:28 | PC.NURSE ---
1700. Patient instructions given on how to view the discharge video Mother [facility] Baby [facility], The First Two Weeks . Patient was encouraged to ask questions. Patient verbalized understanding of information shared and has been given the mother/baby guide for home reference.
--- NOTE | 2024-08-19 18:12 | PC.NURSE ---
1809. PAUL Shearer called to let this RN know that the patient needs a social media executive consult per Dr Bains. The patient stated she might have no housing after discharge as she does not work currently and her partner recently lost his job. This patient should also receive a WIC referral at discharge.
[2024-08-20] VITALS (8 sets, daily range): BP systolic 122–131; BP diastolic 74–91; PULSE 101–112; RESP 18–22; TEMP 36.3–39; O2SAT 97–100
[2024-08-20] MEDS: ACETAMINOPHEN 325 MG TABLET 650 MG PO ×4 (00:25→23:15)
[2024-08-20] MEDS: IBUPROFEN 600 MG TABLET PO ×4 (00:25→23:15)
[2024-08-20] MEDS: CLINDAMYCIN 900 MG/D5W 50 ML 900 MG/50 ML PIGGYBACK 50 MG IVPB ×3 (04:15→21:15)
[2024-08-20 04:25] LABS: Hematocrit 31.9 % (37.0-47.0); Hemoglobin 10.7 g/dL (12.0-15.0); Immature Platelet Fraction Pct 16.8 % (0.9-11.2); Mean Corpuscular HGB Conc 33.5 g/dl (32-36); Mean Corpuscular Hemoglobin 30.2 pg (26-34); Mean Corpuscular Volume 90.1 fl (80-100); Mean Platelet Volume 12.7 fl (7.4-10.4); Platelet Count Result 101 k/mm3 (150-375); Red Blood Count 3.54 M/mm3 (4.2-5.4); Red Cell Distribution Width 14.1 % (11.5-14.5); White Blood Count 14.1 K/mm3 (4.5-10.0)
[2024-08-20 04:46] LABS: Alanine Aminotransferase 12 U/L (6-35); Albumin Level 2.5 g/dL (3.5-5.1); Alkaline Phosphatase 140 U/L (38-126); Anion Gap 1 mmol/L (4-12); Aspartate Amino Transferase 28 U/L (14-36); Bilirubin,Total 0.5 mg/dL (0.2-1.3); Blood Urea Nitrogen 6 mg/dL (7-17); Calcium 8.2 mg/dL (8.4-10.2); Carbon Dioxide 22 mmol/L (22-30); Chloride 106 mmol/L (98-107); Estimated CRCL calculation 144 ml/min; Estimated Glomerular Filt Rate > 60; Glucose 110 mg/dL (65-110); Potassium 3.4 mmol/L (3.4-5.0); Sodium 129 mmol/L (137-145)
[2024-08-20] MEDS: VANCOMYCIN 1,000 MG/NS 250 ML 1,000 MG/250 ML BAG 250 MG IVPB ×3 (05:17→22:15)
[2024-08-20] MEDS: DOCUSATE SODIUM 100 MG CAPSULE PO (08:49)
[2024-08-20] MEDS: ALPRAZolam (*CRX) 0.5 MG TABLET 1 MG PO (08:50)
--- NOTE | 2024-08-20 08:55 | P.PNOB_ITS ---
OB - PN: Subj Subjective Date/time seen: 08/20/24 08:55 Narrative: PPD#1 Shaylee reports doing well today. 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 Her pain is controlled. She is tolerating regular diet, voiding, passing gas, and ambulating without issues. She is bottle feeding. She had fevers overnight and antibiotics were started. She reports some congestion, but just significant body aches/chills/sweating. She would like her son circumcised. OB - PN: Obj Data Labs 08/20/24 04:01 08/20/24 04:01 Labs: Laboratory Results - last 24 hr 08/20/24 04:01 WBC 14.1 H RBC 3.54 L Hgb 10.7 L Hct 31.9 L MCV 90.1 MCH 30.2 MCHC 33.5 RDW 14.1 Plt Count 101 L MPV 12.7 H % Immature Plt Fraction 16.8 H Sodium 129 L Potassium 3.4 Chloride 106 Carbon Dioxide 22 Anion Gap 1 L BUN 6 L Creatinine 0.60 L Estim Creat Clear Calc 144 Estimated GFR > 60 Glucose 110 Calcium 8.2 L Total Bilirubin 0.5 AST 28 ALT 12 Alkaline Phosphatase 140 H Total Protein 5.0 L Albumin 2.5 L OB - PN A/P Assessment and Plan (1) Normal vaginal delivery of first : Code(s): O80 - Encounter for full-term uncomplicated delivery Status: Acute (2) Chorioamnionitis: Code(s): O41.1290 - Chorioamnionitis, unspecified trimester, not applicable or unspecified Status: Acute Plan day: 1 Plan: routine care Comments: - PO pain meds - Regular diet - Ambulation and hydration encouraged - Treating for chorio as she has multiple risk factors; continue antibiotics for 24 hours-- but will also check for Flu, Covid, RSV. Repeat labs in AM (WBC of 14 currently) - Monitoring BPs; pt asymptomatic, but plts noted to be 101 today. repeat pending Time Spent With Patient Time: Total time spent is greater than 50% in coordination of care (as documented) at patient's floor/unit and/or counseling patient: Review of Systems 2 Constitutional: Constitutional: Denies chills, Reports fever(s) and Denies headache(s) Eyes: Eyes: Denies change in vision ENT: Denies dizziness and Denies headache(s) Cardiovascular: Cardiovascular: Denies chest pain, Denies palpitations and Denies dyspnea Respiratory: Respiratory: Denies cough and Denies dyspnea Gastrointestinal: Gastrointestinal: Denies nausea and Denies vomiting Neurologic: Denies dizziness and Denies headache(s) Endocrine: Endocrine: Denies palpitations Exam 2 Const: General: cooperative, diaphoretic (profusely sweating; gown completely soaked) and other (sleeping, but awoke easily) Nutritional Appearance: obese Orientation/consciousness: patient oriented x3 Resp: Effort & Inspection: normal respiratory effort Auscultation: clear to auscultation bilaterally Cardio: Rate: regular rate GI: Inspection: non-distended GI Palp: No abdominal tenderness and Yes Soft to palpation Auscultation: normal bowel sounds : Other: fundus firm Skin: General skin exam: normal color Neuro: General: patient oriented x3 Extrem: General: normal to inspection Psych: Appearance: grossly normal Affect: normal affect Attitude: c ooperative
[2024-08-20 12:57] LABS: Influenza A QL RT-PCR Negative (Negative); Influenza B QL RT-PCR Negative (Negative); RSV RNA, RT-PCR Negative (Negative); SARS-CoV-2 RNA PCR Negative (Negative)
--- NOTE | 2024-08-20 12:57 | WPDANLDPN2 ---
Anes-Prog Note L&D Date/Time: 08/20/24 12:57 Comfortable throughout: labor and delivery Neuraxial method: epidural Epidural/Spinal procedure site: clean & non-tender Neuro status: Neuro function grossly intact. Cardiovascular status: normal Respiratory status: normal Airway patency: baseline Mental status: baseline Post-Op hydration status: normal Vital Signs: Last Vital Signs Temp 97.8 F 08/20/24 08:45 Pulse 103 H 08/20/24 08:45 Resp 18 08/20/24 08:45 BP 131/91 H 08/20/24 08:45 Pulse Ox 100 08/20/24 08:45 O2 Del Method Room Air 08/20/24 08:45 Pain score (VAS): 0 I/O: Intake & Output 08/19/24 08/20/24 08/20/24 23:59 07:59 15:59 Intake Total 0 50 Output Total 400 Balance -400 50 Post-procedural complaints: none Patient feedback: Patient satisfied with anesthetic care.
[2024-08-21 03:58] VITALS: TEMP 36.6
[2024-08-21 04:00] LABS: Basophils Percent Auto 0.6 % (0.2-1.2); Eosinophils Percent Auto 0.6 % (0-4.4); Hemoglobin 10.5 g/dL (12.0-15.0); Immature Granulocyte Percent A 1.9 % (0-0.5); Immature Platelet Fraction Pct 15.7 % (0.9-11.2); Lymphocytes Absolute Auto 0.89 K/mm3 (0.9-3.2); Lymphocytes Percent Auto 17.2 % (18.3-44.2); Mean Corpuscular HGB Conc 32.8 g/dl (32-36); Mean Corpuscular Hemoglobin 29.8 pg (26-34); Mean Corpuscular Volume 90.9 fl (80-100); Mean Platelet Volume 12.2 fl (7.4-10.4); Monocytes Absolute Auto 0.3 K/mm3 (0.1-0.6); Monocytes Percent Auto 5.6 % (2.6-8.5); Neutrophils Absolute Auto 3.8 K/mm3 (1.3-6.7); Neutrophils Percent Auto 74.1 % (45.5-73.1); Platelet Count Result 92 k/mm3 (150-375); Red Blood Count 3.52 M/mm3 (4.2-5.4); Red Cell Distribution Width 14.4 % (11.5-14.5); White Blood Count 5.2 K/mm3 (4.5-10.0)
[2024-08-21 04:11] LABS: Alanine Aminotransferase 24 U/L (6-35); Albumin Level 2.5 g/dL (3.5-5.1); Alkaline Phosphatase 122 U/L (38-126); Anion Gap 0 mmol/L (4-12); Aspartate Amino Transferase 47 U/L (14-36); Bilirubin,Total 0.5 mg/dL (0.2-1.3); Blood Urea Nitrogen 6 mg/dL (7-17); Calcium 8.2 mg/dL (8.4-10.2); Carbon Dioxide 24 mmol/L (22-30); Chloride 107 mmol/L (98-107); Estimated CRCL calculation 170 ml/min; Estimated Glomerular Filt Rate > 60; Glucose 89 mg/dL (65-110); Potassium 3.6 mmol/L (3.4-5.0); Sodium 131 mmol/L (137-145)
--- NOTE | 2024-08-21 07:23 | PM.OBDSVD ---
DS: Admitting Diagnosis Discharge Date 08/21/24 Admitting Diagnosis Non-reassuring heart rate monitoring; 02/13 Post dates DS: Discharge Diagnosis Discharge Diagnosis (1) NST (non-stress test) nonreactive: Code(s): O28.8 - Other abnormal findings on screening of mother Status: Acute (2) Normal vaginal delivery of first : Code(s): O80 - Encounter for full-term uncomplicated delivery Status: Acute (3) Chorioamnionitis: Code(s): O41.1290 - Chorioamnionitis, unspecified trimester, not applicable or unspecified Status: Acute (4) Pre-eclampsia: Code(s): O14.90 - Unspecified pre-eclampsia, unspecified trimester Status: Acute OB - DS: Summary OB Procedures : NST, PIH Mgmt and Ultrasound OB Procedures Intrapartum: Spontaneous Vag Delivery OB Procedures: : Antibiotics Peripartum Data Infant Delivery Method: Natural Vaginal Laceration Description: Perineal - 2nd Degree complications: none 1: Gender: Male Status at Discharge Functional status at discharge: independent ambulation Overall status at discharge: patient is back to baseline Time Spent with Patient Time attestation: Total time spent providing and/or coordinating discharge services: Exam Const: General: cooperative, comfortable and no acute distress Nutritional Appearance: obese Orientation/consciousness: patient oriented x3 Resp: Effort & Inspection: normal respiratory effort Auscultation: clear to auscultation bilaterally Cardio: Rate: regular rate GI: Inspection: non-distended GI Palp: No abdominal tenderness and Yes Soft to palpation Auscultation: normal bowel sounds : Other: fundus firm Skin: General skin exam: normal color Neuro: General: patient oriented x3 Extrem: General: normal to inspection Psych: Appearance: grossly normal Affect: normal affect Attitude: cooperative DS: Data Data Completed and Pending Pending studies at discharge: Pending at discharge 08/19/24 14:21 Surgical [PTH] Routine Labs on day of discharge: Labs from last 24 hours 08/20/24 08/20/24 12:12 04:01 WBC 14.1 H RBC 3.54 L Hgb 10.7 L Hct 31.9 L MCV 90.1 MCH 30.2 MCHC 33.5 RDW 14.1 Plt Count 101 L MPV 12.7 H % Immature Plt Fraction 16.8 H Sodium 129 L Potassium 3.4 Chloride 106 Carbon Dioxide 22 Anion Gap 1 L BUN 6 L Creatinine 0.60 L Estim Creat Clear Calc 144 Estimated GFR > 60 Glucose 110 Calcium 8.2 L Total Bilirubin 0.5 AST 28 ALT 12 Alkaline Phosphatase 140 H Total Protein 5.0 L Albumin 2.5 L Influenza A (RT-PCR) Negative Influenza B (RT-PCR) Negative RSV (RT-PCR) Negative SARS-CoV-2 RNA (RT-PCR) Negative Discharge Plan Discharge Attending physician on discharge: Mehnaz Bains Consulting providers: Mehnaz Bains Discharging Clinician: Mehnaz Bains Anticipated Discharge Date/Time: 08/21/24 16:00 Patient Disposition: Home, Self-Care Activity: may shower and pelvic rest Diet: regular Patient Instructions: Vaginal Delivery (DC) Patient Language: Andorran Stand Alone Forms: General Discharge Information Follow-up/Referrals: Mehnaz Bains MD [Physician] - 4 Weeks Discharge Medications: New acetaminophen 325 mg Tablet 650 mg PO Q6H PRN (Reason: Mild Pain (1-3) Or Headache) Qty: 60 0RF ibuprofen 600 mg Tablet 600 mg PO Q6H PRN (Reason: Cramping) Qty: 40 0RF Continued mirtazapine 15 mg tablet 15 mg PO QHS fluoxetine 40 mg capsule 40 mg PO DAILY albuterol sulfate 90 mcg/actuation HFA aerosol inhaler 2 puff inhalation Q4-6H PRN (Reason: shortness of breath or wheezing) Qty: 8.5 1RF dexmethylphenidate 10 mg capsule,ER biphasic 50-50 10 mg PO DAILY alprazolam [Xanax] 1 mg tablet See Rx Instructions .ROUTE .COMPLEX PRN (Reason: anxiety) Qty: 15 0RF Rx Instructions: Take 1/2 to 1 tablet up to twice a day as needed for anxiety. Classic 28 mg iron- 800 mcg tablet 1 tablet PO DAILY Qty: 90 3RF Rx Instructions: if not covered by insurance, any that is covered is ok to substitute Date of admission: 08/18/24 08:50 Primary Care Provider: UNKNOWN,DOCTOR Admitting Provider: Jatin De La Paz Attending physician on admission: Jatin De La Paz Condition: Stable
[2024-08-21 08:05] VITALS: BP 131/82; PULSE 95; RESP 18; TEMP 36; O2SAT 98
[2024-08-21] MEDS: IBUPROFEN 600 MG TABLET PO (08:48)
[2024-08-21] MEDS: ACETAMINOPHEN 325 MG TABLET 650 MG PO (08:49)
[2024-08-21] MEDS: ALPRAZolam (*CRX) 0.5 MG TABLET 1 MG PO (08:50)
[2024-08-21] MEDS: DOCUSATE SODIUM 100 MG CAPSULE PO (08:51)
[2024-08-21] MEDS: MULTIVIT/MIN/PREN/FOL AC/IRON TABLET 1 TAB PO (08:51)
--- NOTE | 2024-08-21 09:34 | PC.NURSE ---
Patient is rubella non immune. Declined her MMR vaccine this AM. She states that vaccinations make her feel sick and she will get one at a later date with her physician.
--- NOTE | 2024-08-21 13:13 | PCCCNOTE ---
Met with pt. and FOB at bedside. This is their first child. They have all necessary belongings for baby boy Ghulam at home. Did provide donation basket to assist. Pt. was already provided SDOH information from nursing to including housing, childcare center administrator, and utility assistance. She has this informaiton and other resources at bedside. Denies any other needs. Discharge home.
== END 2024-08-21 14:00 | disposition home or self-care (01) | DRG 560 ==
LOC: ANHLDR 08-19 15:02 → ANHOB2 08-20 11:09 → ANHLDR 08-22 11:04
PROVIDERS: Admitting Provider Obstetrics & Gynecology; Visit Provider Obstetrics & Gynecology
DX: O76 Abnormality in fetal heart rate and rhythm complicating labor and delivery (principal); O99.344 Other mental disorders complicating childbirth; F41.9 Anxiety disorder, unspecified; O99.52 Diseases of the respiratory system complicating childbirth; O70.1 Second degree perineal laceration during delivery; O41.1230 Chorioamnionitis, third trimester, not applicable or unspecified; O14.94 Unspecified pre-eclampsia, complicating childbirth; O77.0 Labor and delivery complicated by meconium in amniotic fluid; Z3A.40 40 weeks gestation of pregnancy; Z37.0 Single live birth; J45.909 Unspecified asthma, uncomplicated; F90.9 Attention-deficit hyperactivity disorder, unspecified type
CPT/HCPCS: 36415; 80053; 85025; 85027; 85055; 86592; 86703; 86850; 86900; 86901; 87637; 88307; A9270; G0432; J1200; J2371; J2405; J2590; J2795; J3370; J7030; J7120